=== PATIENT | male | born 1950 ===

== ENCOUNTER 2019-04-04 17:46 | Outpatient (REF) | payer OTHER, SELFPAY ==
[2019-04-04 21:34] LABS: Hemoglobin A1C 6.3 % (4.5-6.2)
[2019-04-04 21:40] LABS: Prothrombin Time 61.3 sec (9.3-11.0)
== END 2019-04-04 18:06 ==
LOC: NCHCN 17:46
PROVIDERS: Referring Provider Registered Nurse; Visit Provider Registered Nurse
DX: E11.9 Type 2 diabetes mellitus without complications (principal); I48.2 Chronic atrial fibrillation
CPT/HCPCS: 83036; 85610